=== PATIENT | male | born 1965 | race Asian ===

== ENCOUNTER 2017-07-08 16:50 | Emergency (ER) | payer OTHER ==
[2017-07-08] MEDS ORDERED: Sodium Chloride 0.9% 2.5 ML Syringe FLUSH PRN (17:38)
[2017-07-08] MEDS ORDERED: Sodium Chloride 0.9% 1,000 ML IV ONE (17:38)
[2017-07-08] MEDS ORDERED: Sodium Chloride 0.9% 10 ML Syringe FLUSH PRN (17:38)
--- NOTE | 2017-07-08 17:41 | EDM.PDOC ---
ED HPI GENERAL MEDICAL PROBLEM - General Chief Complaint: Abdominal Pain Stated Complaint: RIGHT LOWER ABDMONIAL PAIN Time Seen by Provider: 07/08/17 17:39 Source of Information: Reports: Patient History Limitations: Reports: Language Barrier - History of Present Illness INITIAL COMMENTS - FREE TEXT/NARRATIVE: HISTORY AND PHYSICAL: []51-year-old male presents with abdominal pain for the last 2 days History of Present Illness: []Last ate at 12:30 today Martiniquais gentleman does not speak Luxembourgish (MARTTI) was utilized also a friend with him speaks some Martiniquais Review of Systems: As per history of present illness and below otherwise all systems reviewed and negative. Past medical history: As per history of present illness and as reviewed below otherwise noncontributory. Surgical history: As per history of present illness and as reviewed below otherwise noncontributory. Social history: No reported history of drug or alcohol abuse. Family history: As per history of present illness and as reviewed below otherwise noncontributory. Physical exam: Alert and oriented male does not look to be in acute distress he is nontoxic in appearance. Answers the interpreters in full sentences without any shortness of breath. HEENT: Atraumatic, normocehpalic, pupils reactive, negative for conjunctival pallor or scleral icterus, mucous membranes moist, throat clear, neck supple, nontender, trachea midline. Lungs: Clear to auscultation, breath sounds equal bilaterally, chest non tender. Heart: S1S2, regular, negative for clicks, rubs, or JVD. Abdomen: Soft, tender upon palpation to right lower quadrant and rebound tenderness is present. Negative for masses or hepatossplenmegaly. Negative for costovertebral tenderness. Pelvis: Stable nontender. Genitourinary: Deferred. Rectal: Deferred Extremities: Atraumatic, negative for cords or calf pain. Neurovascular unremarkable. Neuro: Awake, alert, oriented. Cranial nerves II through XII unremarkable. Cerebellum unremarkable. Motor and sensory unremarkable throughout. Exam nonfocal. CT scan negative for appendicitis there is some colitis on the right Diagnostics: [CBC CMP abdomen pelvis CT a UA] Therapeutics: [] Impression: [Colitis] Plan: [Discharged to home Off work 24 hours Bentyl 20 mg 3 times a day when necessary Flagyl 500 -3 times a day Cipro 500 -3 times a day] See your primary care or return to ER if symptoms were Definitive disposition and diagnosis as appropriate pending reevaluation and review of above. Right Lower Abdomen Pain Score (Numeric/FACES): 5 - Related Data Allergies Allergy/AdvReac Type Severity Reaction Status Date / Time No Known Allergies Allergy Verified 07/08/17 17:13 Home Meds: Home Meds Ciprofloxacin HCl [Cipro] 500 mg PO BID #14 tablet 07/08/17 [Rx] Dicyclomine [Bentyl] 20 mg PO TID PRN #21 tab 07/08/17 [Rx] metroNIDAZOLE [Flagyl] 500 mg PO Q8H #24 tablet 07/08/17 [Rx] Past Medical History - Past Health History Medical/Surgical History: Denies Medical/Surgical History Social & Family History - Family History Family Medical History: Noncontributory - Tobacco Use Smoking Status *Q: Current Every Day Smoker Years of Tobacco use: 30 Packs/Tins Daily: 0.5 - Caffeine Use Caffeine Use: Reports: None - Recreational Drug Use Recreational Drug Use: No ED ROS GENERAL - Review of Systems Review Of Systems: ROS reveals no pertinent complaints other than HPI. ED EXAM, GI/ABD - Physical Exam Exam: See Below (see dictation) Course - Vital Signs Last Recorded V/S: Last Vital Signs Temp 36.4 C 07/08/17 19:03 Pulse 83 07/08/17 19:03 Resp 16 07/08/17 19:03 BP 127/78 07/08/17 19:03 Pulse Ox 98 07/08/17 19:03 - Orders/Labs/Meds Orders: Active Orders 24 hr Category Date Time Status Abdomen Pelvis w Cont [CT] Stat Exams 07/08/17 17:39 Taken CULTURE URINE [RM] Stat Lab 07/08/17 17:25 Received Sodium Chloride 0.9% [Saline Flush] Med 07/08/17 17:38 Active 10 ml FLUSH ASDIRECTED PRN Sodium Chloride 0.9% [Saline Flush] Med 07/08/17 17:38 Active 2.5 ml FLUSH ASDIRECTED PRN Saline Lock Insert [OM.PC] Stat Oth 07/08/17 17:38 Ordered Medication Orders Sodium Chloride (Saline Flush) 10 ml FLUSH ASDIRECTED PRN PRN Reason: Keep Vein Open Last Admin: 07/08/17 17:55 Dose: 10 ml Sodium Chloride (Saline Flush) 2.5 ml FLUSH ASDIRECTED PRN PRN Reason: Keep Vein Open Last Admin: 07/08/17 17:55 Dose: 2.5 ml Labs: Laboratory Tests 07/08/17 07/08/17 07/08/17 Range/Units 17:25 17:48 17:48 WBC 12.98 H (4.0-11.0) K/uL RBC 4.97 (4.50-5.90) M/uL Hgb 16.3 (13.0-17.0) g/dL Hct 46.0 (38.0-50.0) % MCV 92.6 (80.0-98.0) fL MCH 32.8 H (27.0-32.0) pg MCHC 35.4 (31.0-37.0) g/dL RDW Std Deviation 42.7 (28.0-62.0) fl RDW Coeff of [place] 13 (11.0-15.0) % Plt Count 193 (150-400) K/uL MPV 9.90 (7.40-12.00) fL Neut % (Auto) 63.8 (48.0-80.0) % Lymph % (Auto) 25.5 (16.0-40.0) % [place] % (Auto) 9.8 (0.0-15.0) % Eos % (Auto) 0.7 (0.0-7.0) % Baso % (Auto) 0.2 (0.0-1.5) % Neut # (Auto) 8.3 H (1.4-5.7) K/uL Lymph # (Auto) 3.3 H (0.6-2.4) K/uL [place] # (Auto) 1.3 H (0.0-0.8) K/uL Eos # (Auto) 0.1 (0.0-0.7) K/uL Baso # (Auto) 0.0 (0.0-0.1) K/uL Nucleated RBC % 0.0 /100WBC Nucleated RBCs # 0 K/uL Sodium 140 (136-146) mmol/L Potassium 3.3 L (3.5-5.1) mmol/L Chloride 106 (98-110) mmol/L Carbon Dioxide 26 (21-31) mmol/L BUN 12 (6.0-23.0) mg/dL Creatinine 0.9 (0.6-1.5) mg/dL Est Cr Clr Drug Dosing 85.42 mL/min Estimated GFR (MDRD) > 60.0 ml/min Glucose 87 (60-110) mg/dL Calcium 9.2 (8.8-10.8) mg/dL Total Bilirubin 1.4 (0.1-1.5) mg/dL AST 18 (5-40) IU/L ALT 29 (8-54) IU/L Alkaline Phosphatase 88 (40-150) Total Protein 7.5 (6.0-8.0) g/dL Albumin 4.6 (3.5-5.0) g/dL Globulin 2.9 (2.0-3.5) g/dL Albumin/Globulin Ratio 1.6 (1.3-2.8) Urine Color YELLOW Urine Appearance CLEAR Urine pH 5.5 (5.0-8.0) Ur Specific [place] 1.020 (1.001-1.035) Urine Protein NEGATIVE (NEGATIVE) mg/dL Urine Glucose (UA) NEGATIVE (NEGATIVE) mg/dL Urine Ketones NEGATIVE (NEGATIVE) mg/dL Urine Occult Blood TRACE-INTACT (NEGATIVE) Urine Nitrite NEGATIVE (NEGATIVE) Urine Bilirubin NEGATIVE (NEGATIVE) Urine Urobilinogen 0.2 (<2.0) EU/dL Ur Leukocyte Esterase NEGATIVE (NEGATIVE) Urine RBC 0-2 (0-2/HPF) Urine WBC NONE SEEN (0-5/HPF) Ur Epithelial Cells RARE (NONE-FEW) Urine Bacteria OCCASIONAL (NEGATIVE) Meds: Medications Generic Name Dose Route Start Last Admin Trade Name Rina PRN Reason Stop Dose Admin Sodium Chloride 10 ml 07/08/17 17:38 07/08/17 17:55 Saline Flush FLUSH 10 ml ASDIRECTED PRN Administration Keep Vein Open Sodium Chloride 2.5 ml 07/08/17 17:38 07/08/17 17:55 Saline Flush FLUSH 2.5 ml ASDIRECTED PRN Administration Keep Vein Open Discontinued Medications Generic Name Dose Route Start Last Admin Trade Name Rina PRN Reason Stop Dose Admin Sodium Chloride 1,000 mls @ 999 mls/hr 07/08/17 17:38 07/08/17 17:56 Normal Saline IV 07/08/17 18:38 999 mls/hr STAT ONE Administration Iopamidol 90 ml 07/08/17 18:34 07/08/17 18:38 Isovue Multipack-370 (76%) IVPUSH 07/08/17 18:35 90 ml ONETIME STA Administration Departure - Departure Time of Disposition: 19:53 Disposition: Home, Self-Care 01 Condition: Good Clinical Impression: Colitis - Discharge Information Prescriptions: Ciprofloxacin HCl [Cipro] 500 mg PO BID #14 tablet Dicyclomine [Bentyl] 20 mg PO TID PRN #21 tab PRN Reason: Cramping metroNIDAZOLE [Flagyl] 500 mg PO Q8H #24 tablet Referrals: PCP,None [Primary Care Provider] - Forms: ED Department Discharge Additional Instructions: The following information is given to patients seen in the emergency department who are being discharged to home. This information is to outline your options for follow-up care. We provide all patients seen in our emergency department with a follow-up referral. The need for follow-up, as well as the timing and circumstances, are variable depending upon the specifics of your emergency department visit. If you don't have a primary care physician on staff, we will provide you with a referral. We always advise you to contact your personal physician following an emergency department visit to inform them of the circumstance of the visit and for follow-up with them and/or the need for any referrals to a consulting specialist. The emergency department will also refer you to a specialist when appropriate. This referral assures that you have the opportunity for followup care with a specialist. All of these measure are taken in an effort to provide you with optimal care, which includes your followup. Under all circumstances we always encourage you to contact your private physician who remains a resource for coordinating your care. When calling for followup care, please make the office aware that this follow-up is from your recent emergency room visit. If for any reason you are refused follow-up, please contact the [facility] emergency department at and asked to speak to the emergency department charge nurse. No appendicitis was noted on scan Colitis is present which is inflammation in your intestine Medication has been given for infection and to reduce the spasms that cause pain - My Orders Last 24 Hours: My Active Orders 07/08/17 17:25 CULTURE URINE [RM] Stat 07/08/17 17:38 Sodium Chloride 0.9% [Saline Flush] 10 ml FLUSH ASDIRECTED PRN Sodium Chloride 0.9% [Saline Flush] 2.5 ml FLUSH ASDIRECTED PRN Saline Lock Insert [OM.PC] Stat 07/08/17 17:39 Abdomen Pelvis w Cont [CT] Stat - Assessment/Plan Last 24 Hours: My Active Orders 07/08/17 17:25 CULTURE URINE [RM] Stat 07/08/17 17:38 Sodium Chloride 0.9% [Saline Flush] 10 ml FLUSH ASDIRECTED PRN Sodium Chloride 0.9% [Saline Flush] 2.5 ml FLUSH ASDIRECTED PRN Saline Lock Insert [OM.PC] Stat 07/08/17 17:39 Abdomen Pelvis w Cont [CT] Stat
[2017-07-08 18:20] LABS: CHLORIDE,CL 106 mmol/L (98-110); SODIUM,NA 140 mmol/L (136-146)
[2017-07-08] MEDS ORDERED: Iopamidol 755 MG/ML 500 ML Multipack Bottle IVPUSH STA (18:34)
[2017-07-08 20:33] VITALS: BP 115/62
--- NOTE | 2017-07-11 11:55 | CT ---
EXAM DATE: 07/08/17 PATIENT'S AGE: 51 Patient: CONY DOE Facility: [place], [place] Site . Site : [id number] Study: CT Abdomen/Pelvis w cont [id number]/[id number] 7:00:08 PM Ordering Physician: Doctor Morris Final Report: INDICATION: Right lower abdominal pain since yesterday. TECHNIQUE: CT abdomen and pelvis acquired with 88 mL of Isovue 370 IV contrast. COMPARISON: None. FINDINGS: Lower chest: Minimal bibasilar scarring or atelectasis. No pleural or pericardial effusions. Liver: Unremarkable. Spleen: Unremarkable. Pancreas: Unremarkable. Gallbladder and bile ducts: Unremarkable. Kidneys: Unremarkable. Adrenal glands: Unremarkable. GI tract: There is mild heterogeneous fat stranding along the anterior aspect of the ascending colon, for example as seen on axial image 63 of series 201. Mild heterogeneity of the adjacent colonic wall is also noted. No focal inflammatory changes about the appendix. There is colonic diverticulosis without evidence of acute diverticulitis. No free intraperitoneal gas. Trace pelvic free fluid. Tiny fat containing umbilical hernia. Vascular structures: No abdominal aortic aneurysm. Lymph nodes: Unremarkable. Pelvic Organs: Prostatomegaly. Bladder is unremarkable. Bones: Degenerative changes. IMPRESSION: Nonspecific colitis of the ascending colon versus right-sided epiploic appendagitis. No evidence of acute appendicitis. No bowel obstruction. Colonic diverticulosis without evidence of acute diverticulitis. Prostatomegaly. Dictated by Rahul Hughes MD @ 07/08/2017 7:28:41 PM Dictated by: Rahul Hughes MD @ 07/08/2017 19:29:17 (Electronic Signature) Report Signed by Proxy. [facility]
== END 2017-07-08 20:14 | disposition home or self-care (01) ==
LOC: MW.ED 16:50
DX: K52.9 Noninfective gastroenteritis and colitis, unspecified (principal); F17.210 Nicotine dependence, cigarettes, uncomplicated
CPT/HCPCS: 36415; 74177; 80053; 81001; 85025; 87086; 96360; 99284; J7040; Q9967; 99283